=== PATIENT | female | born 1955 | race Caucasian/White ===

== ENCOUNTER 2016-11-20 13:15 | Emergency (ER) | payer MEDICARE ==
[~2016-11-20] VITALS: Ht 165.1 cm; Wt 84.1 kg
[~2016-11-20 13:15] MED LIST: BUPR8TAB2 SL; DEXT10TA PO; FLUO20CA25 PO; GABA-502 PO; LEVO150T5 PO
[2016-11-20 13:20] VITALS: BP 144/95; PULSE 80; RESP 20; O2SAT 99
--- NOTE | 2016-11-20 13:55 | ED.REPORT ---
HPI-General Illness Date of Service Nov 20, 2016 ED Provider: Katy Rosario MD 61 year old female who is a former smoker who presents to the ED due to shortness of breath and "flu like" symptoms for 10 days. Pt reports feeling nausea, productive cough with yellow/white sputum, dizziness, diffuse malaise, subjective fever and diaphoresis. Pt denies changes in bowel or bladder. Pt has taken ibuprofen/Tylenol with some relief. Nursing Notes Stated Complaint: SOB Chief Complaint: Respiratory Distress Nursing Notes Reviewed: Yes Allergies: Coded Allergies: No Known Allergies (Unverified , 11/20/16) Scheduled Dextroamphetamine (Dextroamphetamine) 10 Mg Tablet 20 MG PO BIDBL Fluoxetine (Fluoxetine) 20 Mg Capsule 60 MG PO DAILY Gabapentin (Gabapentin) 300 Mg Capsule 600 MG PO TID Levothyroxine (Levothyroxine) 150 Mcg Tablet 150 MCG PO DAILY Scheduled PRN Buprenorphine SL (Buprenorphine SL) 8 Mg Tab.subl 8 MG SL BID PRN PRN For Pain General Time Seen by MD: 13:53 Chief Complaint Breathing problem Hx Obtained From: Patient Arrived By: Walk-in Onset Occurred: More than a week ago... Symptom Duration: Since onset Severity: Current: Moderate Associated with: Reports: Cough, Diaphoresis, Dizziness, Fever, Nausea, Pain, Shortness of breath Past Medical History Past Medical History Hypothyroidism Fibromyalgia Depression Suicidal ideation Past Surgical History None reported Smoking History Former Smoker Social History Alcohol Use: Denies alcohol use Drug Use: THC Ambulatory Status Independent Review of Systems Full Review of Systems Constitutional: Reports: Fever, Malaise, Weakness - generalized Respiratory: Reports: Prod cough, clear, Prod cough, yellow, Shortness of breath GI: Reports: Nausea, Denies: Constipation, Diarrhea Female: Denies: Dysuria, Urinary frequency Skin: Reports Diaphoresis Neurologic: Reports: Dizziness Complete sys rev & neg: except as marked. Physical Exam Vital Signs Vital Signs Date Time Temp Pulse Resp B/P Pulse Ox O2 Delivery O2 Flow Rate FiO2 11/20/16 15:08 85 16 99 Room Air 11/20/16 13:20 35.7 80 20 144/95 99 Room Air Initial VS: Reviewed General/Constitutional: Well-developed, Well-nourished Head / Eyes: Atraumatic, Normocephalic, PERRL ENT: Mucous membranes moist, Conjunctiva normal, No scleral icterus Neck: Supple, Full range of motion Cardiovascular: Regular rate & rhythm, Heart sounds normal, Intact distal pulses Abdomen / GI: Soft, Non-tender, No guarding, No rebound, No distention Extremities: Vascular intact, Neuro intact, No swelling (No edema), No tenderness Skin: Warm, Dry, No cyanosis Neurologic: Alert, Oriented, Nonfocal Psychiatric: Mood/affect normal, Behavior normal, Normal thought content Respiratory / Chest: Atraumatic, No respiratory distress, No rales, No rhonchi scattered minor anterior wheezes Interpretation & Diagnostics X-Ray Chest Interpretation Chest Xray Interpretation: IMPRESSION: No acute pulmonary process. Dictated by: Priscilla Olivera M.D. on 11/20/2016 at 14:48 Approved by: Priscilla Olivera M.D. on 11/20/2016 at 14:48 View: AP & lat Interpretation / Wet Read by: Interpret - Radiologist Re-Eval/Medical Decision Med Decision/Clinical Course Unremarkable chest x-ray. He did not drink without difficulties. Ambulatory oxygen saturations on room air at 97% despite perception of dyspnea. Wheezing significantly improved after DuoNeb. This most likely represents reactive airway disease versus COPD exacerbation at the tail end of influenza type illness. We will discharge with albuterol nebulizer. No evidence that antibiotics will be of any benefit at this point Discharge & Departure Primary Impression: Influenza-like illness Additional Impression: Pneumonia Disposition: Home Additional Instructions: I am very reassured with looking at her chest x-ray. Despite the fact that you are feeling short of breath, your oxygen levels are remaining in the normal level. You still have a significant significant amount of healing to do. At this point, you do not need to be in the hospital I think you will benefit from using an albuterol inhaler, 2 puffs every 6 hours as needed for cough or shortness of breath for the next few days. If you feel that you are getting worse, having more shortness of breath, unable to eat, develop increasing fevers, then please return to the ER for additional evaluation. Referrals: NOPCP (PCP) Scribe Attestation Portions of this note were transcribed by Stella Patel and Hua Kerr, (Dr. Rosario) personally performed the history, physical exam and medical decision- making; I reviewed and confirmed the accuracy of the information in the transcribed note. Signed by: Stella Patel. 11/20/2016, 1515 Katy Rosario MD Nov 20, 2016 13:55 Stella Patel Nov 20, 2016 14:17 Hua Thompson Nov 20, 2016 14:57
[2016-11-20] MEDS ORDERED: Ondansetron 8 mg ODT Tablet PO ONE (14:50)
[2016-11-20] MEDS ORDERED: Albuterol-Ipratropium 3 mL Inhalation Solution NEB ONE (14:50)
--- NOTE | 2016-11-20 14:50 | DRSVH ---
PROCEDURE: X-RAY CHEST, TWO VIEWS ([id number]) INDICATIONS: cough TECHNIQUE: 2 views of the chest were acquired. COMPARISON: None. FINDINGS: Surgical changes and devices: None. Lungs and pleura: No pleural effusions or pneumothorax. Lungs are clear. Mediastinum: Mediastinal contours are normal. Heart size is normal. Bones and chest wall: No suspicious bony abnormalities. Soft tissues appear unremarkable. IMPRESSION: No acute pulmonary process. Dictated by: Priscilla Olivera M.D. on 11/20/2016 at 14:48 Approved by: Priscilla Olivera M.D. on 11/20/2016 at 14:48
[2016-11-20 15:08] VITALS: PULSE 85; RESP 16; O2SAT 99
[2016-11-20] MEDS ORDERED: ALBU8.5H2 INHALATION (16:23)
[2016-11-20 16:38] VITALS: BP 153/98; PULSE 76; O2SAT 99
== END 2016-11-20 16:38 | disposition home or self-care (01) ==
LOC: SED 13:15
DX: J11.00 Influenza due to unidentified influenza virus with unspecified type of pneumonia (principal); R06.02 Shortness of breath; E03.9 Hypothyroidism, unspecified; Z87.891 Personal history of nicotine dependence
CPT/HCPCS: 71020; 94664; 99284; J7620

== ENCOUNTER 2016-11-22 09:18 | Emergency (ER) | payer MEDICARE ==
[~2016-11-22] VITALS: Ht 165.1 cm; Wt 84.1 kg
[~2016-11-22 09:18] MED LIST changes: +ALBU8.5H2 INHALATION
[2016-11-22 09:30] VITALS: BP 162/99; PULSE 86; RESP 18; O2SAT 96
--- NOTE | 2016-11-22 09:44 | ED.REPORT ---
HPI-Psychiatric Illness Date of Service Nov 22, 2016 ED Provider: Dr. Chan Pt is a 61 y/o female w/ a hx of major depression, personality disorder, hypothyroid, presenting to the ED c/o suicidal ideations. Of note, her complaint and story today is almost exactly similar to when she was admitted to the [facility] here from Oct 30-2015. She was diagnosed with severe recurrent major depression without psychotic features during that visit. She states that she "doesn't want to live anymore, she's just done". She believes her old doctor in [place] brought her up here to help her and then fell in love with her and bought her sex toys etc. The doctor then left her causing her to become homeless. She doesn't have a specific plan for suicide but states that the easiest method would be carbon monoxide poisoning. She has been taking all her medications. She denies recent drug or alcohol use. She does not have a psychiatrist. She also reports ongoing nausea for "a long time". Nursing Notes Stated Complaint: SUICIDAL Chief Complaint: Psychiatric Complaint Nursing Notes Reviewed: Yes Allergies: Coded Allergies: No Known Allergies (Unverified , 11/20/16) Scheduled Albuterol HFA (Proair HFA) 8.5 Gm Hfa.aer.ad 2 PUFFS INHALATION Q4H Cephalexin (Keflex) 500 Mg Capsule 500 MG PO QID Dextroamphetamine (Dextroamphetamine) 10 Mg Tablet 20 MG PO BIDBL Fluoxetine (Fluoxetine) 20 Mg Capsule 60 MG PO DAILY Gabapentin (Gabapentin) 300 Mg Capsule 600 MG PO TID Levothyroxine (Levothyroxine) 150 Mcg Tablet 150 MCG PO DAILY Scheduled PRN Buprenorphine SL (Buprenorphine SL) 8 Mg Tab.subl 8 MG SL BID PRN PRN For Pain Ondansetron ODT (Zofran ODT) 4 Mg Tablet 4 MG PO Q4H PRN PRN For Nausea General Time Seen by MD: 09:43 Chief Complaint Suicidal ideation Hx Obtained From: Patient Arrived By: Walk-in Onset Occurred: More than a week ago... Symptom Duration: Since onset Progression Since Onset: Constant Severity: Current: No pain currently Severity: Maximum: No pain Recent Healthcare: Recent doctor visit, Recent testing, Previous diagnosis, Prior workup Similar Sx Previous: Yes Risk-Psychiatric Illness Suicide Risk Stratification Suicide Risk Factors - Adult: : Previous attempt: Prior psych admissionNo: Alcohol use, Family Hx of Suicide, Substance abuse RF Statements: Risk factors reviewed Past Medical History Past Medical History Notes: Outpatient she appears to be followed by Dr. Power Hardin. She was treated at [place] at [facility] with Vera Prado as her primary. Inpatient she reports six or seven total psychiatric admissions, the 1st at age 16 and the last at [facility] in [place] in 2001 at the age of approximately 47. Past medications have included Abilify which she took once and did not like the side effects. Zoloft and Effexor were not helpful and Wellbutrin helped for awhile but lost its efficacy. Fluoxetine appears to be fairly consistent in aiding her symptoms. She reports a past suicide attempt, her 1st being in her late teens and her last at age 17 as an overdose. She denies a history of self-injurious behavior. Past Medical History Hypothyroidism Fibromyalgia Major Depression Psychiatric inpatient treatment Borderline personality disorder Suicidal ideation w/ suicide attempts Distant history of bulimia Past Surgical History None reported Family History Significant for a grandmother with schizophrenia and a father with bipolar disorder and schizophrenia. There is no completed suicide in the family. There is a history of alcoholism in the father. Significant for a sister and mother with cancer, with the sister having brain cancer and the mother having lung cancer. Smoking History Former Smoker Social History The patient has a history of misusing dextroamphetamine and crank in the past, as well as cocaine, but has not been on it recently. She also has a remote history of using LSD and magic mushrooms. She reported using alcohol in the past to help mellow her out after she used speed, but she has not used it in some time. She has been using marijuana daily in the last month but typically does not smoke it that frequently. 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 She denies a history of heroin, IV drug abuse, or huffing. She has been in drug treatment twice, once at [facility] approximately 30 years ago and at [facility] in [place] approximately one year ago. Alcohol Use: Denies alcohol use Drug Use: THC Ambulatory Status Independent Review of Systems GI: Reports: Nausea Psychiatric: Reports: Depression, Stress, Suicidal ideation, Denies: Agitation, Change mental status, Hallucinations, auditory, Hallucinations, visual, Homicidal ideation, Hostile Complete sys rev & neg: except as marked. Physical Exam Initial Vital Signs Vital Signs (First) Date Time Temp Pulse Resp B/P Pulse Ox O2 Delivery O2 Flow Rate FiO2 11/22/16 09:30 35.9 86 18 162/99 96 11/22/16 13:02 Room Air Initial VS: Reviewed, Vital signs abnormal Head / Eyes: Atraumatic, Normocephalic, PERRL ENT: Mucous membranes moist, Conjunctiva normal, No scleral icterus Neck: Supple, Full range of motion Respiratory: Breath sounds normal, Clear to auscultation, No respiratory distress Cardiovascular: Regular rate & rhythm, Heart sounds normal, Intact distal pulses Abdomen / GI: Soft, Non-tender, No guarding, No rebound, No distention Extremities: Vascular intact, Neuro intact, No swelling, No tenderness Skin: Warm, Dry, No cyanosis General/Constitutional: Awake, Alert, No acute distress, Cooperative, Not toxic appearing Neurologic: Oriented X3, Speech NL, No motor deficits, No sensory deficits Psychiatric: Not homicidal, No hallucinations, Cognitive function NL Abnormal Mood/Affect: Positive: Flat affect Abnormal Thinking / Perception: Positive: Suicidal, with plan Interpretation & Diagnostics Lab Results Interpretation Result Diagram: 11/22/16 1020 11/22/16 1020 Test 11/22/16 10:20 11/22/16 11:32 White Blood Count 4.3th/mm3 (3.8-10.1) Red Blood Count 4.58mil/mm3 (3.90-5.20) Hemoglobin 14.1g/dL (12.0-15.6) Hematocrit 40.0% (35.0-46.0) Mean Corpuscular Volume 87.3fL (81-100) Mean Corpuscular Hemoglobin 30.8pg (27.0-35.0) Mean Corpuscular Hemoglobin Concent 35.3% (32.0-37.0) Red Cell Distribution Width 13.4% (12.3-15.4) Platelet Count 270bil/L (150-400) Neutrophils (%) (Auto) 53.8% (40-74) Lymphocytes (%) (Auto) 28.0% (14-46) Monocytes (%) (Auto) 16.6% (4-12) Eosinophils (%) (Auto) 0.9% (0-5) Basophils (%) (Auto) 0.5% (0-3) Sodium Level 139mEq/L (134-144) Potassium Level 3.5mEq/L (3.5-5.2) Chloride Level 93mEq/L (97-108) Carbon Dioxide Level 29mmol/L (18-29) Blood Urea Nitrogen 9mg/dL (8-27) Creatinine 0.49mg/dL (0.57-1.00) Estimat Glomerular Filtration Rate 183mL/min (>59) Glucose Level 128mg/dL (60-99) Calcium Level 9.1mg/dL (8.5-10.1) Total Bilirubin 0.3mg/dL (0.0-1.2) Aspartate Amino Transf (AST/SGOT) 60U/L (0-50) Alanine Aminotransferase (ALT/SGPT) 33U/L (0-32) Alkaline Phosphatase 93U/L (25-165) Total Protein 7.0g/dL (6.4-8.4) Albumin 4.2g/dL (3.4-5.0) Thyroid Stimulating Hormone (TSH) 0.866uIU/mL (0.450-4.500) Hold Bush Top Tube Received (Received) Hold Urine Received (Received) Re-Eval/Medical Decision Med Decision/Clinical Course The patient seen and evaluated by social work and after this encounter now contracts for safety and has a valuable outpatient care plan. She agrees to stay safe is discharged on Keflex and Zofran for an incidental urinary tract infection. Return precautions given. Re-Evaluation/Progress : Time of Eval: 12:32 )( Re-Eval Psychiatric: No danger to self, No danger to others, No suicidal ideation, No homicidal ideation Re-Evaluation/Progress Note: Pt rechecked. No more SI, feels safe to go home.Informed pt of plan for treatment. Pt understands and agrees with plan for treatment. F/U and RTER warnings given. All questions addressed. Consultation : Consulted With: patch worker Call Returned at: 12:32 Integrity Director: Will see patient, Agrees with eval, Agrees with plan Note: Provided the patient with multiple resources and scheduled an appointment for Friday of next week. Counseled Regarding: Diagnosis, Lab results, Need for follow-up, When/why to return to ED Discharge & Departure Impression: Primary Impression: Severe recurrent major depression without psychotic features )( Condition at Discharge: No danger to self, No danger to others, No suicidal ideation, No homicidal ideation Disposition: Home (mental health safe housing) Discharge Condition All VS Reviewed: Yes Condition: Stable Patient Instructions: Major Depression (GEN) Additional Instructions: You have an appointment at 2:30 PM at [facility]. Call [place] [facility] on Friday. Go directly to [facility] after leaving the ER today. Return to the emergency department if you are having thoughts or harming yourself or others, your depression increases, or for other medical emergencies. Referrals: NOPCP (PCP) [facility] Scribe Attestation Portions of this note were transcribed by Sai Clay. I, Dr. Chan personally performed the history, physical exam and medical decision-making; I reviewed and confirmed the accuracy of the information in the transcribed note. Signed by Charles Rubio, 11/22/16 - 0946 Alex Chan DO Nov 22, 2016 09:44 SAI CLAY Nov 22, 2016 09:46
[2016-11-22 10:46] LABS: BASOPHILS % (AUTO) 0.5 % (0-3); EOSINOPHILS % (AUTO) 0.9 % (0-5); MONOCYTES % (AUTO) 16.6 % (4-12); Mean Corpuscular Hemoglobin 30.8 pg (27.0-35.0); Mean Corpuscular Volume 87.3 fL (81-100); NEUTROPHILS % (AUTO) 53.8 % (40-74); Platelet Count 270 bil/L (150-400)
[2016-11-22] MEDS ORDERED: Ondansetron 8 mg ODT Tablet PO ONE (11:25)
[2016-11-22] MEDS ORDERED: CEPH-512 PO (12:30)
[2016-11-22] MEDS ORDERED: ONDA4TAB9 PO (12:30)
[2016-11-22 13:02] VITALS: BP 152/88; PULSE 81; RESP 18; O2SAT 96
== END 2016-11-22 13:08 | disposition home or self-care (01) ==
LOC: SED 09:18
DX: F33.2 Major depressive disorder, recurrent severe without psychotic features (principal); R11.0 Nausea; M79.7 Fibromyalgia; E03.9 Hypothyroidism, unspecified